=== PATIENT | male | born 1950 | race Caucasian/White ===

== ENCOUNTER 2020-02-15 17:40 | Emergency (ER) | payer MEDICARE, OTHER ==
[2020-02-15] MEDS ORDERED: Sodium Chloride 0.9% 1000 ML 1,000 ML IV STA (18:05)
[2020-02-15] MEDS ORDERED: Ativan 2 MG/1 ML VIAL IV ONE (18:05)
[2020-02-15] MEDS ORDERED: Ativan 2 MG/1 ML VIAL ONE (18:06)
[2020-02-15] MEDS ORDERED: Sodium Chloride 0.9% 1000 ML 1,000 ML ONE (18:08)
[2020-02-15 18:17] VITALS: BP 191/114; PULSE 72; O2SAT 100
[2020-02-15 18:17] LABS: Absolute Neutrophil Ct (ANC) 4.09 (1.4-6.9); BASOPHIL % 0.6 % (0.0-0.4); Basophil (Absolute #) 0.04 (0-0.4); Eosinophil % 2.4 % (0.00-5.0); Eosinophil (Absolute #) 0.17 (0-0.5); Hematocrit 45.4 % (42-50); Hemoglobin 15.3 gm/dl (12.5-18.0); Lymphocytes % 31.9 % (24.0-44.0); Mean Cell Volume 88.3 fl (78-100); Mean Corpuscular Hemoglobin 29.8 pg (26-32); Mean Corpuscular Hgb Concent. 33.7 g/dl (32-36); Mean Platelet Volume 9.2 fl (7.5-11.0); Monocyte (Absolute #) 0.61 (0.0-1.3); Monocytes % 8.5 % (0.0-12.0); Neutrophil % 56.6 % (36.0-66.0); Platelet Count 332 K/mm3 (150-450); Red Blood Count 5.14 M/mm3 (4.1-5.6); Red Cell Distribution Width 14.8 % (11.5-14.0); White Blood Count 7.2 K/mm3 (4.0-10.5)
[2020-02-15] MEDS ORDERED: VERSED 5 MG/5 ML IV ONE (18:27)
[2020-02-15] MEDS ORDERED: VERSED 5 MG/5 ML ONE (18:28)
[2020-02-15 18:30] LABS: ALBUMIN 4.7 g/dL (3.5-5.0); ALKALINE PHOSPHATASE 102 U/L (38-126); ANION GAP 14.9 MEQ/L (5-15); BLOOD UREA NITROGEN 14 mg/dL (9-20); CHLORIDE 102 mmol/L (98-107); Calcium 10.2 mg/dL (8.4-10.2); Carbon Dioxide 25 mmol/L (22-30); Creatinine 1 1.03 mg/dL (0.66-1.25); Glucose 111 mg/dL (74-106); Potassium 4.1 mmol/L (3.5-5.1); SGOT/AST 29 U/L (17-59); SGPT/ALT 24 U/L (0-50); SODIUM 138 mmol/L (137-145); Total Protein 8.7 g/dL (6.3-8.2)
--- NOTE | 2020-02-15 18:52 | ERPHSYRPT ---
- History of Present Illness Time Seen by Provider: 02/15/20 18:47 Source: patient Exam Limitations: no limitations Patient Subjective Stated Complaint: unable to urinate Triage Nursing Assessment: Patient ambulated back to ED and transferred self to bed. Patient A+O x 3. Patient's skin pink, warm and dry. Patient complains of not being able to void for 1 1/2 days. Patient states this happened around 10 years ago and a f/c was placed. Patient's bladder distended. Patient complains of constant sharp pressure in lower abdomen. Physician History: unable to urinate for 1 day Patient complains of not being able to void for 1 1/2 days. Patient states this happened around 10 years ago and a f/c was placed. Patient's bladder distended. Patient complains of constant sharp pressure in lower abdomen. Timing/Duration: yesterday Activites at Onset: none Pain Radiation: none Severity of Pain-Max: none Severity of Pain-Current: none Modifying Factors: Improves With: nothing Associated Symptoms: denies symptoms Allergies/Adverse Reactions: No Known Drug Allergies Allergy (Unverified 02/15/20 18:55) Home Medications: No Reportable Medications [No Reported Medications] 02/15/20 [History] Hx Influenza Vaccination/Date Given: Yes (Jul 2019) Hx Pneumococcal Vaccination/Date Given: Yes (Jul 2019) Immunizations Up to Date: Yes Travel Risk - International Travel Have you traveled outside of the country in past 3 weeks: No - Coronavirus Screening Are you exhibiting any of the following symptoms?: No Close contact with a COVID-19 positive Pt in past 14-21 Days: No - Past Medical History Pertinent Past Medical History: No Neurological History: No Pertinent History ENT History: No Pertinent History Cardiac History: No Pertinent History Respiratory History: No Pertinent History Endocrine Medical History: No Pertinent History Musculoskeletal History: No Pertinent History GI Medical History: No Pertinent History History: No Pertinent History Psycho-Social History: Other Male Reproductive Disorders: No Pertinent History Other Medical History: PTSD - Past Surgical History Past Surgical History: No Neuro Surgical History: No Pertinent History Cardiac: No Pertinent History Respiratory: No Pertinent History Gastrointestinal: No Pertinent History Genitourinary: No Pertinent History Musculoskeletal: Orthopedic Surgery Male Surgical History: No Pertinent History Other Surgical History: Left knee orthoscopic surgery 40 years ago - Social History Smoking Status: Current some day smoker How long have you smoked: years Exposure to second hand smoke: No Drug Use: none Patient Lives Alone: No - Review of Systems Constitutional: No Symptoms Eyes: No Symptoms Ears, Nose, & Throat: No Symptoms Respiratory: No Symptoms Cardiac: No Symptoms Abdominal/Gastrointestinal: No Symptoms Genitourinary Symptoms: Urinary Retention Musculoskeletal: No Symptoms - Nursing Vital Signs Nursing Vital Signs: Initial Vital Signs Pulse Rate 72 02/15/20 17:45 Respiratory Rate 26 H 02/15/20 17:45 Blood Pressure 191/114 02/15/20 17:45 O2 Sat by Pulse Oximetry 100 02/15/20 17:45 Pain Scale Pain Intensity 10 - Physical Exam General Appearance: moderate distress Eye Exam: PERRL/EOMI Ears, Nose, Throat Exam: normal ENT inspection Neck Exam: normal inspection Respiratory Exam: normal breath sounds Cardiovascular Exam: regular rate/rhythm Gastrointestinal/Abdomen Exam: soft Male Genital Exam: normal genitalia, enlarged prostate, prostate tenderness Back Exam: normal inspection Extremity Exam: normal inspection SpO2: 100 - Course Nursing assessment & vital signs reviewed: Yes Ordered Tests: Active Orders 24 hr Category Date Time Status Catheter-Breaks Figueora STAT Care 02/15/20 17:55 Completed CBC W DIFF Stat Lab 02/15/20 18:10 Completed CMP Stat Lab 02/15/20 18:10 Completed Medication Summary Discontinued Medications Generic Name Dose Route Start Last Admin Trade Name Balaq PRN Reason Stop Dose Admin Sodium Chloride 1,000 mls @ 999 mls/hr 02/15/20 18:05 02/15/20 19:19 Sodium Chloride 0.9% 1000 Ml IV 02/15/20 19:05 Infused .Q1H1M STA Infusion Sodium Chloride Confirm 02/15/20 18:08 Sodium Chloride 0.9% 1000 Ml Administered 02/15/20 18:09 Dose 1,000 mls @ ud .ROUTE .STK-MED ONE Lorazepam 2 mg 02/15/20 18:05 02/15/20 18:10 Ativan 2 Mg/1 Ml Vial IV 02/15/20 18:06 2 mg STAT ONE Administration Lorazepam Confirm 02/15/20 18:06 Ativan 2 Mg/1 Ml Vial Administered 02/15/20 18:07 Dose 2 mg .ROUTE .STK-MED ONE Midazolam HCl 5 mg 02/15/20 18:27 02/15/20 18:33 Versed 5 Mg/5 Ml IV 02/15/20 18:28 5 mg STAT ONE Administration Midazolam HCl Confirm 02/15/20 18:28 Versed 5 Mg/5 Ml Administered 02/15/20 18:29 Dose 5 mg .ROUTE .STK-MED ONE Lab/Rad Data: Laboratory Result Diagrams 02/15/20 18:10 02/15/20 18:10 Laboratory Results 02/15/20 02/15/20 Range/Units 18:10 18:10 WBC 7.2 (4.0-10.5) K/mm3 RBC 5.14 (4.1-5.6) M/mm3 Hgb 15.3 (12.5-18.0) gm/dl Hct 45.4 (42-50) % MCV 88.3 (78-100) fl MCH 29.8 (26-32) pg MCHC 33.7 (32-36) g/dl RDW 14.8 H (11.5-14.0) % Plt Count 332 (150-450) K/mm3 MPV 9.2 (7.5-11.0) fl Gran % 56.6 (36.0-66.0) % Eos # (Auto) 0.17 (0-0.5) Absolute Lymphs (auto) 2.30 (1.0-4.6) Absolute Monos (auto) 0.61 (0.0-1.3) Lymphocytes % 31.9 (24.0-44.0) % Monocytes % 8.5 (0.0-12.0) % Eosinophils % 2.4 (0.00-5.0) % Basophils % 0.6 (0.0-0.4) % Absolute Granulocytes 4.09 (1.4-6.9) Basophils # 0.04 (0-0.4) Sodium 138 (137-145) mmol/L Potassium 4.1 (3.5-5.1) mmol/L Chloride 102 (98-107) mmol/L Carbon Dioxide 25 (22-30) mmol/L Anion Gap 14.9 (5-15) MEQ/L BUN 14 (9-20) mg/dL Creatinine 1.03 (0.66-1.25) mg/dL Estimated GFR > 60.0 ML/MIN Glucose 111 H (74-106) mg/dL Calcium 10.2 (8.4-10.2) mg/dL Total Bilirubin 0.70 (0.2-1.3) mg/dL AST 29 (17-59) U/L ALT 24 (0-50) U/L Alkaline Phosphatase 102 (38-126) U/L Serum Total Protein 8.7 H (6.3-8.2) g/dL Albumin 4.7 (3.5-5.0) g/dL - Progress Progress: unchanged Progress Note: 02/16/20 17:46 multiple attempts made with different size catheter without success, will transfer patient for further urologist consult Discussed with Dr.: Other (Dr Casilals at [facility]) Will see patient in: other (at [facility]) Counseled pt/family regarding: need for follow-up - Departure Departure Disposition: Transfer ([facility]) Clinical Impression: Urinary retention due to benign prostatic hyperplasia Condition: Fair Critical Care Time: Yes Critical Care Time(excluding separately billable procedures): Critical 30-74 mins Referrals: Provider,Unknown [Primary Care Provider] - Instructions: Urinary Retention (DC)
== END 2020-02-15 19:20 | disposition short-term general hospital (02) ==
LOC: ED 17:40
DX: N40.0 Benign prostatic hyperplasia without lower urinary tract symptoms (principal); Z72.0 Tobacco use
CPT/HCPCS: 36000; 36415; 51702; 80053; 85025; 96360; 96374; 96375; 99285; 99291; J2060; J2250

== ENCOUNTER 2020-02-24 13:03 | Emergency (ER) | payer MEDICARE ==
[2020-02-24 13:27] VITALS: BP 146/94; PULSE 68; O2SAT 94
--- NOTE | 2020-02-24 13:34 | ERPHSYRPT ---
- History of Present Illness Time Seen by Provider: 02/24/20 13:15 Exam Limitations: no limitations Patient Subjective Stated Complaint: pt here to get fc out, he was seen here on 02/15/20 for urinary retention. pt has finished antiboitics Triage Nursing Assessment: pt alert, walked in with face mask in place, resp easy, skin w/d/p. has leg bag in place with yellow urine Physician History: Patient is a 69-year-old male presents to our ED for possible removal of indwelling Figueroa catheter. Indwelling Figueroa catheter was placed on February 14. Staff at [facility] had difficulty placing the catheter and patient was transferred. Patient saw Dr. Aguirre who placed the catheter. Patient was prescribed antibiotics. Patient just finished his course of antibiotics. Case discussed with Dr. Aguirre who feels that the catheter should be maintained at leas t until next Sunday at time of patient's next appointment. Patient otherwise asymptomatic. He voices no other complaints concerns at this time. Timing/Duration: day(s) (9 days.) Activites at Onset: none Onset Location: unknown (Radiation) Pain Radiation: none Severity of Pain-Max: none Severity of Pain-Current: none Modifying Factors: Improves With: nothing Associated Symptoms: denies symptoms Prior abdominal problems: none Sexual intercourse history: non-contributory Allergies/Adverse Reactions: No Known Drug Allergies Allergy (Verified 02/24/20 13:07) Home Medications: Smz/Tmp Ds Tablet [Bactrim Ds Tablet] 1 udtab BID 02/24/20 [History] Hx Tetanus, Diphtheria Vaccination/Date Given: No Hx Influenza Vaccination/Date Given: Yes (Jul 2019) Hx Pneumococcal Vaccination/Date Given: Yes (Jul 2019) Immunizations Up to Date: Yes Travel Risk - International Travel Have you traveled outside of the country in past 3 weeks: No - Coronavirus Screening Are you exhibiting any of the following symptoms?: No Close contact with a COVID-19 positive Pt in past 14-21 Days: No - Past Medical History Pertinent Past Medical History: No Neurological History: No Pertinent History ENT History: No Pertinent History Cardiac History: No Pertinent History Respiratory History: No Pertinent History Endocrine Medical History: No Pertinent History Musculoskeletal History: No Pertinent History GI Medical History: No Pertinent History History: No Pertinent History Psycho-Social History: Other Male Reproductive Disorders: No Pertinent History Other Medical History: PTSD - Past Surgical History Past Surgical History: No Neuro Surgical History: No Pertinent History Cardiac: No Pertinent History Respiratory: No Pertinent History Gastrointestinal: No Pertinent History Genitourinary: No Pertinent History Musculoskeletal: Orthopedic Surgery Male Surgical History: No Pertinent History Other Surgical History: Left knee orthoscopic surgery 40 years ago - Social History Smoking Status: Current some day smoker How long have you smoked: years Exposure to second hand smoke: No Drug Use: none Patient Lives Alone: No - Review of Systems Constitutional: No Symptoms, No Fever, No Chills Eyes: No Symptoms Ears, Nose, & Throat: No Symptoms Respiratory: No Symptoms, No Cough, No Dyspnea Cardiac: No Symptoms, No Chest Pain, No Edema, No Syncope Abdominal/Gastrointestinal: No Symptoms, No Abdominal Pain, No Nausea, No Vomiting, No Diarrhea Genitourinary Symptoms: No Symptoms, No Dysuria Musculoskeletal: No Symptoms, No Back Pain, No Neck Pain Skin: No Symptoms, No Rash Neurological: No Symptoms, No Dizziness, No Focal Weakness, No Sensory Changes Psychological: No Symptoms Endocrine: No Symptoms Hematologic/Lymphatic: No Symptoms Immunological/Allergic: No Symptoms All Other Systems: Reviewed and Negative - Nursing Vital Signs Nursing Vital Signs: Initial Vital Signs Pulse Rate 68 02/24/20 13:10 Respiratory Rate 18 02/24/20 13:10 Blood Pressure 146/94 02/24/20 13:10 O2 Sat by Pulse Oximetry 94 L 02/24/20 13:10 Pain Scale Pain Intensity 0 - Physical Exam General Appearance: no apparent distress, alert Eye Exam: PERRL/EOMI Ears, Nose, Throat Exam: pharynx normal, moist mucous membranes Neck Exam: normal inspection, supple Respiratory Exam: normal breath sounds, lungs clear Cardiovascular Exam: regular rate/rhythm, No edema Gastrointestinal/Abdomen Exam: soft, No tenderness Back Exam: normal inspection, No CVA tenderness Extremity Exam: normal inspection, normal range of motion, No pedal edema Neurologic Exam: alert, oriented x 3, cooperative, sensation nml, No motor deficits Skin Exam: normal color, warm, dry, No rash SpO2 Interpretation: normal SpO2: 94 O2 Delivery: Room Air - Course Nursing assessment & vital signs reviewed: Yes - Progress Progress: unchanged, improved Progress Note: 02/24/20 13:33 Patient's Figueroa catheter is intact. It is draining appropriately. Patient completed his course of antibiotics. Case discussed with Dr. Aguirre who advises maintaining the Figueroa catheter until his next clinic visit. Plan of care discussed with patient. He understands and agrees with plan of care. Patient agrees to follow-up with Dr. Aguirre at his next scheduled visit. Patient voices no other complaints or concerns at this time. No indication for additional work-up. 02/24/20 13:[address] Other (Case discussed with Dr. Aguirre who will see patient in his office at the next scheduled visit.) Will see patient in: office Counseled pt/family regarding: diagnosis, need for follow-up - Departure Departure Disposition: Home Clinical Impression: Encounter for medical screening examination Condition: Stable Critical Care Time: Yes Referrals: Provider,Unknown [Primary Care Provider] - Additional Instructions: Discharge/Care Plan KAIT COLE ESPINOZA was seen on 02/24/20 in the Emergency Room. The patient was counseled regarding Diagnosis,Lab results, Imaging studies, need for follow up and when to return to the Emergency Room. Prescriptions given: Discharge Note I have spoken with the patient and/or caregivers. I have explained the patient's condition, diagnosis and treatment plan based on the information available to me at this time. I have answered the patient's and/or caregiver's questions and addressed any concerns. The patient and/or caregivers have as good understanding of the patient's diagnosis, condition and treatment plan as can be expected at this point. The vital signs have been stable. The patient's condition is stable and appropriate for discharge from the emergency department. The patient will pursue further outpatient evaluation with the primary care physician or other designated or consulting physician as outlined in the discharge instructions. The patient and/or caregivers are agreeable to this plan of care and follow-up instructions have been explained in detail. The patient and/or caregivers have received these instruction. The patient/and or caregivers are aware that any significant change in condition or worsening of symptoms should prompt an immediate return to this or the closest emergency department or call 911.
== END 2020-02-24 13:42 | disposition home or self-care (01) ==
LOC: ED 13:03
DX: Z00.8 Encounter for other general examination (principal)
CPT/HCPCS: 99283

== ENCOUNTER 2020-12-08 13:44 | Emergency (ER) | payer MEDICARE ==
[2020-12-08] MEDS ORDERED: Sodium Chloride 0.9% 1000 ML 1,000 ML IV SCH (14:15)
[2020-12-08] MEDS ORDERED: Sodium Chloride 0.9% 1000 ML 1,000 ML ONE (14:26)
[2020-12-08] MEDS ORDERED: MORPHINE SULFATE 4 MG INJ IV ONE (14:32)
[2020-12-08] MEDS ORDERED: MORPHINE SULFATE 4 MG INJ ONE (14:33)
[2020-12-08] MEDS ORDERED: Ketamine HCl 50 MG/ML IV ONE (14:42)
[2020-12-08 15:04] VITALS: O2SAT 99
[2020-12-08 15:15] LABS: Appearance CLEAR (CLEAR); Bilirubin NEGATIVE (NEGATIVE); Blood LARGE Ery/ul (0-5); Glucose NEGATIVE (NEGATIVE); Ketones NEGATIVE (NEGATIVE); Leukocyte Esterase NEGATIVE (NEGATIVE); Nitrite NEGATIVE (NEGATIVE); Protein,Urine Dip NEGATIVE (Negative); Specific Gravity 1.015 (1.005-1.025); Urobilinogen NEGATIVE mg/dL (0-1)
[2020-12-08 15:18] LABS: RBC >101 /HPF (0-2)
[2020-12-08 15:28] LABS: Absolute Neutrophil Ct (ANC) 9.84 (1.4-6.9); BASOPHIL % 0.2 % (0.0-0.4); Basophil (Absolute #) 0.02 (0-0.4); Eosinophil % 1.6 % (0.00-5.0); Eosinophil (Absolute #) 0.18 (0-0.5); Hematocrit 36.2 % (42-50); Hemoglobin 11.9 gm/dl (12.5-18.0); Lymphocytes % 6.1 % (24.0-44.0); Mean Cell Volume 89.4 fl (78-100); Mean Corpuscular Hemoglobin 29.4 pg (26-32); Mean Corpuscular Hgb Concent. 32.9 g/dl (32-36); Mean Platelet Volume 9.2 fl (7.5-11.0); Monocyte (Absolute #) 0.65 (0.0-1.3); Monocytes % 5.7 % (0.0-12.0); Neutrophil % 86.4 % (36.0-66.0); Platelet Count 307 K/mm3 (150-450); Red Blood Count 4.05 M/mm3 (4.1-5.6); White Blood Count 11.4 K/mm3 (4.0-10.5)
[2020-12-08 15:36] LABS: ALBUMIN 4.1 g/dL (3.5-5.0); ALKALINE PHOSPHATASE 69 U/L (38-126); ANION GAP 15.3 MEQ/L (5-15); BLOOD UREA NITROGEN 17 mg/dL (9-20); CHLORIDE 105 mmol/L (98-107); Calcium 9.1 mg/dL (8.4-10.2); Carbon Dioxide 21 mmol/L (22-30); Creatinine 1 0.89 mg/dL (0.66-1.25); EST GLOMERULAR FILTRATION RATE > 60.0 ML/MIN; Glucose 98 mg/dL (74-106); LIPASE 68 U/L (23-300); Potassium 3.7 mmol/L (3.5-5.1); SGOT/AST 24 U/L (17-59); SGPT/ALT 21 U/L (0-50); SODIUM 138 mmol/L (137-145)
[2020-12-08 15:44] LABS: Amphetamine,Urine NEGATIVE (NEGATIVE); Barbiturate,Urine NEGATIVE (NEGATIVE); Benzodiazepine,Urine NEGATIVE (NEGATIVE); Cocaine,Urine NEGATIVE (NEGATIVE); Methadone,Urine NEGATIVE (NEGATIVE); Opiate,Urine POSITIVE (NEGATIVE); PCP,Urine NEGATIVE (NEGATIVE); THC,Urine NEGATIVE (NEGATIVE)
--- NOTE | 2020-12-08 16:05 | ERPHSYRPT ---
- History of Present Illness Time Seen by Provider: 12/08/20 14:20 Source: patient Exam Limitations: no limitations Patient Subjective Stated Complaint: Abdominal pain Triage Nursing Assessment: Patient brought into ED via EMS and transferred self to bed. Patient A+O X3. Patient's skin pink, warm and dry. Patient has perineal urethrostomy creation on Sunday12/06/2020 at [place]. Patient was discharged yesterday. Patient states he woke up at 0200 and urinated. Patient states he isn't able to urinate or have a bowel movement. Patient complains of lower abdominal pain 04/24. Physician History: Patient is a 70-year-old male presents to our ED with complaints of urinary retention. Patient last urinated at 2 AM this morning. Patient states he had a perineal urethrostomy procedure done on Sunday, 2 days ago. Patient was discharged yesterday. Patient describes a suprapubic pain that is constant and progressive. Symptoms are moderate in intensity. No specific worsening or improving factors. No associated nausea vomiting or diarrhea. No fever. Patient voices no other complaints concerns at this time. Timing/Duration: today Severity: moderate Modifying Factors: Improves With: nothing Associated Symptoms: denies symptoms Allergies/Adverse Reactions: No Known Drug Allergies Allergy (Verified 12/08/20 13:58) Hx Tetanus, Diphtheria Vaccination/Date Given: No Hx Influenza Vaccination/Date Given: Yes Hx Pneumococcal Vaccination/Date Given: Yes (Jul 2019) Immunizations Up to Date: Yes Travel Risk - International Travel Have you traveled outside of the country in past 3 weeks: No - Coronavirus Screening Are you exhibiting any of the following symptoms?: No Close contact with a COVID-19 positive Pt in past 14-21 Days: No - Vaccine Status Have you recieved a Covid-19 vaccination: Yes [employer]: [employer] - Vaccination Dates Date of 2cond Vaccination (if applicable): 10/05/2020 - Review of Systems Constitutional: No Symptoms, No Fever, No Chills Eyes: No Symptoms Ears, Nose, & Throat: No Symptoms Respiratory: No Symptoms, No Cough, No Dyspnea Cardiac: No Symptoms, No Chest Pain, No Edema, No Syncope Abdominal/Gastrointestinal: No Symptoms, No Abdominal Pain, No Nausea, No Vomiting, No Diarrhea Genitourinary Symptoms: No Symptoms, No Dysuria Musculoskeletal: No Symptoms, No Back Pain, No Neck Pain Skin: No Symptoms, No Rash Neurological: No Symptoms, No Dizziness, No Focal Weakness, No Sensory Changes Psychological: No Symptoms Endocrine: No Symptoms Hematologic/Lymphatic: No Symptoms Immunological/Allergic: No Symptoms All Other Systems: Reviewed and Negative - Past Medical History Pertinent Past Medical History: No Neurological History: No Pertinent History ENT History: No Pertinent History Cardiac History: No Pertinent History Respiratory History: No Pertinent History Endocrine Medical History: No Pertinent History Musculoskeletal History: No Pertinent History GI Medical History: No Pertinent History History: No Pertinent History Psycho-Social History: Other Male Reproductive Disorders: No Pertinent History Other Medical History: PTSD - Past Surgical History Past Surgical History: No Neuro Surgical History: No Pertinent History Cardiac: No Pertinent History Respiratory: No Pertinent History Gastrointestinal: No Pertinent History Genitourinary: No Pertinent History Musculoskeletal: Orthopedic Surgery Male Surgical History: No Pertinent History Other Surgical History: Left knee orthoscopic surgery 40 years ago. Perineal urethrostomy creation on 12/06/2020 - Social History Smoking Status: Current some day smoker How long have you smoked: years Exposure to second hand smoke: No Drug Use: none Patient Lives Alone: No - Nursing Vital Signs Nursing Vital Signs: Initial Vital Signs Temperature 97.7 F 12/08/20 14:00 Pulse Rate 70 12/08/20 14:00 Respiratory Rate 18 12/08/20 14:00 Blood Pressure 187/88 12/08/20 14:00 O2 Sat by Pulse Oximetry 98 12/08/20 14:00 Pain Scale Pain Intensity 0 - Physical Exam General Appearance: no apparent distress, alert Eye Exam: PERRL/EOMI, eyes nml inspection Ears, Nose, Throat Exam: normal ENT inspection, TMs normal, pharynx normal, moist mucous membranes Neck Exam: normal inspection, non-tender, supple, full range of motion Respiratory Exam: normal breath sounds, lungs clear, No respiratory distress Cardiovascular Exam: regular rate/rhythm, normal heart sounds, normal peripheral pulses Gastrointestinal/Abdomen Exam: soft, normal bowel sounds, No tenderness, No mass Back Exam: normal inspection, normal range of motion, No CVA tenderness, No vertebral tenderness Extremity Exam: normal inspection, normal range of motion, pelvis stable Neurologic Exam: alert, oriented x 3, cooperative, normal mood/affect, nml cerebellar function, nml station & gait, sensation nml, No motor deficits Skin Exam: normal color, warm, dry, No rash Lymphatic Exam: No adenopathy SpO2 Interpretation: normal SpO2: 99 O2 Delivery: Room Air Ordered Tests: Active Orders 24 hr Category Date Time Status EKG-ER Only STAT Care 12/08/20 14:12 Active IV Insertion STAT Care 12/08/20 14:12 Active CBC W DIFF Stat Lab 12/08/20 15:20 Completed CMP Stat Lab 12/08/20 15:20 Completed LIPASE Stat Lab 12/08/20 15:20 Completed TROPONIN Q3H Lab 12/08/20 15:20 Received TROPONIN Q3H Lab 12/08/20 17:15 Ordered TROPONIN Q3H Lab 12/08/20 20:15 Ordered TROPONIN Q3H Lab 12/08/20 23:15 Ordered TROPONIN Q3H Lab 12/09/20 02:15 Ordered UA W/RFX UR CULTURE Stat Lab 12/08/20 14:56 Completed Urine Triage Profile Stat Lab 12/08/20 14:56 Completed Medication Summary Generic Name Dose Route Start Last Admin Trade Name Freq PRN Reason Stop Dose Admin Sodium Chloride 1,000 mls @ 100 mls/hr 12/08/20 14:15 12/08/20 14:30 Sodium Chloride 0.9% 1000 Ml IV 01/07/21 14:14 100 mls/hr .Q10H LUPE Administration Discontinued Medications Generic Name Dose Route Start Last Admin Trade Name Freq PRN Reason Stop Dose Admin Ketamine HCl 37 mg 12/08/20 14:42 12/08/20 14:55 Ketamine Hcl 50 Mg/Ml IV 12/08/20 14:43 37 mg STAT ONE Administration Morphine Sulfate 4 mg 12/08/20 14:32 12/08/20 14:35 Morphine Sulfate 4 Mg Inj IV 12/08/20 14:33 4 mg STAT ONE Administration Morphine Sulfate Confirm 12/08/20 14:33 Morphine Sulfate 4 Mg Inj Administered 12/08/20 14:34 Dose 4 mg .ROUTE .STK-MED ONE Lab/Rad Data: Laboratory Result Diagrams 12/08/20 15:20 12/08/20 15:20 Laboratory Results 12/08/20 12/08/20 12/08/20 Range/Units 15:20 15:20 14:56 WBC 11.4 H (4.0-10.5) K/mm3 RBC 4.05 L (4.1-5.6) M/mm3 Hgb 11.9 L (12.5-18.0) gm/dl Hct 36.2 L (42-50) % MCV 89.4 (78-100) fl MCH 29.4 (26-32) pg MCHC 32.9 (32-36) g/dl RDW 15.0 H (11.5-14.0) % Plt Count 307 (150-450) K/mm3 MPV 9.2 (7.5-11.0) fl Gran % 86.4 H (36.0-66.0) % Eos # (Auto) 0.18 (0-0.5) Absolute Lymphs (auto) 0.70 L (1.0-4.6) Absolute Monos (auto) 0.65 (0.0-1.3) Lymphocytes % 6.1 L (24.0-44.0) % Monocytes % 5.7 (0.0-12.0) % Eosinophils % 1.6 (0.00-5.0) % Basophils % 0.2 (0.0-0.4) % Absolute Granulocytes 9.84 H (1.4-6.9) Basophils # 0.02 (0-0.4) Sodium 138 (137-145) mmol/L Potassium 3.7 (3.5-5.1) mmol/L Chloride 105 (98-107) mmol/L Carbon Dioxide 21 L (22-30) mmol/L Anion Gap 15.3 H (5-15) MEQ/L BUN 17 (9-20) mg/dL Creatinine 0.89 (0.66-1.25) mg/dL Estimated GFR > 60.0 ML/MIN Glucose 98 (74-106) mg/dL Calcium 9.1 (8.4-10.2) mg/dL Total Bilirubin 1.10 (0.2-1.3) mg/dL AST 24 (17-59) U/L ALT 21 (0-50) U/L Alkaline Phosphatase 69 (38-126) U/L Serum Total Protein 7.0 (6.3-8.2) g/dL Albumin 4.1 (3.5-5.0) g/dL Lipase 68 (23-300) U/L Urine Color (YELLOW) Urine Appearance (CLEAR) Urine pH (5-6) Ur Specific [place] (1.005-1.025) Urine Protein (Negative) Urine Ketones (NEGATIVE) Urine Blood (0-5) Chris/ul Urine Nitrite (NEGATIVE) Urine Bilirubin (NEGATIVE) Urine Urobilinogen (0-1) mg/dL Ur Leukocyte Esterase (NEGATIVE) Urine WBC (Auto) (0-5) /HPF Urine RBC (Auto) (0-2) /HPF U Epithel Cells (Auto) (FEW) /HPF Urine Bacteria (Auto) (NEGATIVE) /HPF Urine Culture Reflexed (NO) Urine Glucose (NEGATIVE) mg/dL Urine Opiates Level POSITIVE (NEGATIVE) Ur Methadone NEGATIVE (NEGATIVE) Urine Barbiturates NEGATIVE (NEGATIVE) Ur Phencyclidine (PCP) NEGATIVE (NEGATIVE) Urine Amphetamine NEGATIVE (NEGATIVE) U Benzodiazepine Level NEGATIVE (NEGATIVE) Urine Cocaine NEGATIVE (NEGATIVE) Urine Marijuana (THC) NEGATIVE (NEGATIVE) 12/08/20 Range/Units 14:56 WBC (4.0-10.5) K/mm3 RBC (4.1-5.6) M/mm3 Hgb (12.5-18.0) gm/dl Hct (42-50) % MCV (78-100) fl MCH (26-32) pg MCHC (32-36) g/dl RDW (11.5-14.0) % Plt Count (150-450) K/mm3 MPV (7.5-11.0) fl Gran % (36.0-66.0) % Eos # (Auto) (0-0.5) Absolute Lymphs (auto) (1.0-4.6) Absolute Monos (auto) (0.0-1.3) Lymphocytes % (24.0-44.0) % Monocytes % (0.0-12.0) % Eosinophils % (0.00-5.0) % Basophils % (0.0-0.4) % Absolute Granulocytes (1.4-6.9) Basophils # (0-0.4) Sodium (137-145) mmol/L Potassium (3.5-5.1) mmol/L Chloride (98-107) mmol/L Carbon Dioxide (22-30) mmol/L Anion Gap (5-15) MEQ/L BUN (9-20) mg/dL Creatinine (0.66-1.25) mg/dL Estimated GFR ML/MIN Glucose (74-106) mg/dL Calcium (8.4-10.2) mg/dL Total Bilirubin (0.2-1.3) mg/dL AST (17-59) U/L ALT (0-50) U/L Alkaline Phosphatase (38-126) U/L Serum Total Protein (6.3-8.2) g/dL Albumin (3.5-5.0) g/dL Lipase (23-300) U/L Urine Color YELLOW (YELLOW) Urine Appearance CLEAR (CLEAR) Urine pH 5.0 (5-6) Ur Specific [place] 1.015 (1.005-1.025) Urine Protein NEGATIVE (Negative) Urine Ketones NEGATIVE (NEGATIVE) Urine Blood LARGE (0-5) Chris/ul Urine Nitrite NEGATIVE (NEGATIVE) Urine Bilirubin NEGATIVE (NEGATIVE) Urine Urobilinogen NEGATIVE (0-1) mg/dL Ur Leukocyte Esterase NEGATIVE (NEGATIVE) Urine WBC (Auto) 6-10 (0-5) /HPF Urine RBC (Auto) >101 (0-2) /HPF U Epithel Cells (Auto) NONE (FEW) /HPF Urine Bacteria (Auto) NONE (NEGATIVE) /HPF Urine Culture Reflexed NO (NO) Urine Glucose NEGATIVE (NEGATIVE) mg/dL Urine Opiates Level (NEGATIVE) Ur Methadone (NEGATIVE) Urine Barbiturates (NEGATIVE) Ur Phencyclidine (PCP) (NEGATIVE) Urine Amphetamine (NEGATIVE) U Benzodiazepine Level (NEGATIVE) Urine Cocaine (NEGATIVE) Urine Marijuana (THC) (NEGATIVE) - Progress Progress: improved Progress Note: UA negative for UTI. I spoke to patient's urologist at the [place]. He stated it would be appropriate to insert a [address] well-lubricated through the perineal urethrostomy site. Patient was in significant pain. Patient received morphine and ketamine. After insertion of catheter bladder was drained. Patient experienced complete relief. A small single blood clot was observed urine is otherwise clear. No indication for further work-up at this time. Indication for antibiotics at this time we will maintain catheter with a leg bag discharge home. Patient observed due to administration of ketamine and morphine. Patient agrees to follow-up with his primary care doctor/urologist within 48 hours for reevaluation. 12/08/20 16:02 Counseled pt/family regarding: lab results, diagnosis, need for follow-up - Departure Departure Disposition: Home Clinical Impression: Urinary retention Condition: Stable Critical Care Time: No Referrals: DOCTOR,NO FAMILY [Primary Care Provider] - SCOTTIE WOLFE MD [ACTIVE STAFF] - Additional Instructions: Discharge/Care Plan KAIT COLE was seen on 12/08/20 in the Emergency Room. The patient was counseled regarding Diagnosis,Lab results, Imaging studies, need for follow up and when to return to the Emergency Room. Prescriptions given: Discharge Note I have spoken with the patient and/or caregivers. I have explained the patient's condition, diagnosis and treatment plan based on the information available to me at this time. I have answered the patient's and/or caregiver's questions and addressed any concerns. The patient and/or caregivers have as good understanding of the patient's diagnosis, condition and treatment plan as can be expected at this point. The vital signs have been stable. The patient's condition is stable and appropriate for discharge from the emergency department. The patient will pursue further outpatient evaluation with the primary care physician or other designated or consulting physician as outlined in the discharge instructions. The patient and/or caregivers are agreeable to this plan of care and follow-up instructions have been explained in detail. The patient and/or caregivers have received these instruction. The patient/and or caregivers are aware that any significant change in condition or worsening of symptoms s hould prompt an immediate return to this or the closest emergency department or call 911.
[2020-12-08 16:07] VITALS: BP 110/60; PULSE 104
== END 2020-12-08 16:30 | disposition home or self-care (01) ==
LOC: ED 13:44
DX: R33.9 Retention of urine, unspecified (principal); R10.9 Unspecified abdominal pain
CPT/HCPCS: 36415; 51702; 80053; 80307; 81001; 83690; 84484; 85025; 93005; 96360; 96374; 96375; 99284; J2270